=== PATIENT | female | born 1940 | race Caucasian/White ===

== ENCOUNTER 2020-01-14 11:43 | Emergency (ER) | payer MEDICARE, OTHER ==
[~2020-01-14] VITALS: Ht 162.6 cm; Wt 62.1 kg
[2020-01-14 11:45] VITALS: BP 176/80
[2020-01-14] MEDS ORDERED: VENL75CA47 PO (11:50)
--- NOTE | 2020-01-14 15:20 | REP ---
REASON: Pain after trauma. PRIORS: None. There is tricompartmental marginal osteophytosis and medial femoral narrowing. There is asymmetric patellofemoral joint space narrowing with mild lateral patellar subluxation. There is no acute fracture. IMPRESSION: Chronic changes. Electronically Signed by Carroll Ferguson DO 01/14/2020 03:47 P
== END 2020-01-14 13:22 | disposition home or self-care (01) ==
LOC: M ED 11:43
DX: M25.562 Pain in left knee (principal); Z79.899 Other long term (current) drug therapy

== ENCOUNTER → 2020-03-02 | Outpatient (CLI) | payer MEDICARE, OTHER ==
[~2020-03-02] MED LIST: VENL75CA47 PO
--- NOTE | 2020-03-02 10:51 | REP ---
REASON: Pain . There is tricompartmental marginal osteophytosis. There is medial compartmental narrowing with subchondral sclerosis. There is a joint effusion. There is no acute fracture. IMPRESSION: Chronic changes and joint effusion. Internal derangement cannot be ruled out. Consider MRI of the patient is an MRI candidate. Electronically Signed by Carroll Ferguson DO 03/02/2020 11:28 A
== END ==
LOC: M RAD 09:23
PROVIDERS: ATTEND Orthopaedic Surgery
DX: M25.762 Osteophyte, left knee (principal)